=== PATIENT | female | born 1980 | race Hispanic/Latino ===

== ENCOUNTER 2021-06-20 21:53 | Emergency (ER) | payer BC, OTHER ==
[~2021-06-20] VITALS: Ht 165.1 cm; Wt 64.9 kg
[~2021-06-20 21:53] MED LIST: MULTI-VITAMIN1 EACH PO
[2021-06-20] MEDS ORDERED: HYDROCODONE/APAP 5MG-325MG TAB PO ONE (22:30)
[2021-06-20] MEDS ORDERED: TETANUS/DIPHTHERIA TOX ADULT 0.5 ML SYR IM ONE (22:30)
[2021-06-20] MEDS ORDERED: MORPHINE SULFAT15 MG PO (22:48)
== END 2021-06-20 23:04 | disposition home or self-care (01) ==
LOC: ER 22:28
DX: K01.1 Impacted teeth (principal); W01.198A Fall on same level from slipping, tripping and stumbling with subsequent striking against other object, initial encounter; Y93.01 Activity, walking, marching and hiking; Y92.89 Other specified places as the place of occurrence of the external cause
CPT/HCPCS: 90714; 99282